=== PATIENT | male | born 1960 ===

== ENCOUNTER 2016-12-31 20:38 | Emergency (ER) | payer MEDICARE ==
[2016-12-31 20:46] VITALS: BMI 24.3
[2016-12-31 20:48] VITALS: TEMP 99.1; O2SAT 99
[2016-12-31] MEDS ORDERED: Oxycodone/Acetaminophen 5/325 mg Tab PO STA (21:02)
--- NOTE | 2016-12-31 21:02 | ED PDOC ---
Arrival/HPI <Veto Mares - Last Filed: 12/31/16 21:11> - General Historian: Patient <Stas Riley - Last Filed: 01/01/17 00:38> - General Chief Complaint: Back Pain Time Seen by Provider: 12/31/16 20:57 - History of Present Illness Narrative History of Present Illness (Text): 12/31/16 20:57 56 y/o male, pmh including chronic lower back pain/htn, nkda, c/o lt. lower back pain with the radiating to the lt. lower extremity x 2 days with no fall or trauma. Pt. stated that he had lower back surgery years ago, chronically on the vicodin due to the lower back pain, started to have the lt. lower back pain about 2 days with radiating to the left lower extremity, no calf pain, no urinary or bowel incontinence or retention, no urinary symptoms, no fever or chills, no other medical or psychological complaints. (Stas Riley) Past Medical History - Provider Review Nursing Documentation Reviewed: Yes - Infectious Disease Hx of Infectious Diseases: None - Cardiac Hx Hypertension: Yes - Pulmonary Hx Respiratory Disorders: No - Neurological Hx Neurological Disorder: No - HEENT Hx HEENT Disorder: No - Renal Hx Renal Disorder: No - Endocrine/Metabolic Hx Endocrine Disorders: No - Hematological/Oncological Hx Blood Disorders: No - Integumentary Hx Dermatological Disorder: No - Musculoskeletal/Rheumatological Hx Arthritis: Yes Other/Comment: Back surgery - with metal neftali. Ankle surgery - Gastrointestinal Hx Gastrointestinal Disorders: Yes Hx Gastroesophageal Reflux: Yes Hx Hemorrhoids: Yes - Genitourinary/Gynecological Hx Genitourinary Disorders: Yes Hx Prostate Problems: Yes (SLIGHTLY ENLARGED) - Psychiatric Hx Psychophysiologic Disorder: No Hx Substance Use: No - Surgical History Hx Cholecystectomy: Yes Other/Comment: Back surgery with metal neftali - Anesthesia Hx Anesthesia: Yes Hx Anesthesia Reactions: No Hx Malignant Hyperthermia: No <Stas Riley - Last Filed: 01/01/17 00:38> Family/Social History - Physician Review Nursing Documentation Reviewed: Yes Family/Social History: Unknown Family HX Smoking Status: Never Smoked Hx Alcohol Use: No Hx Substance Use: No <Stas Riley - Last Filed: 01/01/17 00:38> Allergies/Home Meds <Veto Mares - Last Filed: 12/31/16 21:11> <Stas Riley Q - Last Filed: 01/01/17 00:38> Allergies/Adverse Reactions: Allergies No Known Allergies Allergy (Verified 06/16/15 21:28) Home Medications: Home Meds Medication Instructions Recorded Confirmed Enalapril Maleate [Enalapril] 20 mg PO BID 09/12/14 12/31/16 Hydrocodone/Acetaminophen 1 tab PO DAILY PRN 09/12/14 12/31/16 [Hydrocodone Bitartrate-Acetaminophen 325 mg-7] Omeprazole [Prilosec] 20 mg PO DAILY 09/12/14 12/31/16 Saw [place] Fruit [Saw [place]] 1 tab PO DAILY 09/12/14 12/31/16 Zolpidem [Ambien] 1 tab PO HS 09/12/14 12/31/16 Aspirin [Holmes Aspirin] 1 tab PO DAILY 12/31/16 12/31/16 Cholecalciferol [Vitamin D 1000 IU] 5,000 iu PO Q3D 12/31/16 12/31/16 Cyanocobalamin [Vitamin B12 100 500 mcg PO DAILY 12/31/16 12/31/16 mcg Tab] Folic Acid [Folic Acid] 1 tab PO DAILY 12/31/16 12/31/16 Review of Systems - Review of Systems Constitutional: absent: Fatigue, Fevers Eyes: absent: Vision Changes ENT: absent: Hearing Changes Respiratory: absent: SOB, Cough Cardiovascular: absent: Chest Pain Gastrointestinal: absent: Abdominal Pain, Nausea, Vomiting Musculoskeletal: Back Pain. absent: Arthralgias, Neck Pain, Myalgias Skin: absent: Rash, Pruritis, Skin Lesions Neurological: absent: Headache, Dizziness <Stas Riley Q - Last Filed: 01/01/17 00:38> Physical Exam Vital Signs Reviewed: Yes Temperature: Afebrile Blood Pressure: Normal Pulse: Regular Respiratory Rate: Normal Appearance: Positive for: Well-Appearing, Non-Toxic Pain Distress: Severe Mental Status: Positive for: Alert and Oriented X 3 - Systems Exam Head: Present: Atraumatic, Normocephalic Pupils: Present: PERRL Extroacular Muscles: Present: EOMI Conjunctiva: Present: Normal Mouth: Present: Moist Mucous Membranes Neck: Present: Normal Range of Motion Respiratory/Chest: Present: Clear to Auscultation, Good Air Exchange. No: Respiratory Distress, Accessory Muscle Use Cardiovascular: Present: Regular Rate and Rhythm, Normal S1, S2. No: Murmurs Abdomen: Present: Normal Bowel Sounds. No: Tenderness, Distention, Peritoneal Signs Back: Present: Normal Inspection, Paraspinal Tenderness, Other (LS spine: +ttp on the lt. paraspinal with spasm noted, visible surgical scars, no rash, FROM without limitation, sensation intact, motor 5/5, no saddling gait. ). No: CVA Tenderness, Midline Tenderness Upper Extremity: Present: Normal Inspection. No: Cyanosis, Edema Lower Extremity: Present: Normal Inspection. No: Edema Neurological: Present: GCS=15, Speech Normal, Motor Func Grossly Intact, Gait Normal (walking with cane. ), Memory Normal Skin: Present: Warm, Dry, Normal Color. No: Rashes Psychiatric: Present: Alert, Oriented x 3, Normal Insight, Normal Concentration <Stas Riley - Last Filed: 01/01/17 00:38> Vital Signs Temp Pulse Resp BP Pulse Ox 01/01/17 00:23 78 16 120/86 99 12/31/16 20:47 99.1 F 101 H 18 143/90 99 Medical Decision Making <Veto Mares - Last Filed: 12/31/16 21:11> - RAD Interpretation Billing Administrator: Radiologist <Stas Riley - Last Filed: 01/01/17 00:38> ED Course and Treatment: 12/31/16 21:06 -CT Lumbar spine -toradol/percocet/valium/lidoderm patch -Observe and reassess 01/01/17 00:34 -CT Lumbar spine discussed with the patient and Dr. Mares with the pain well controlled and no focal neurological deficits, agreed to bring the copy of the CT and see the orthopedic spine surgeon. -CT results discussed with the patient in detail. -Discharge home with naproxen, flexeril, continue vicodin at home as needed, lidoderm patch, heat compression, bed rest, bring the CT lumbar disc to the orthopedic surgeon, follow up with your own pmd and orthopedic spine surgeon and pain management within 2 days, return to the ER for any new or worsening signs or symptoms. (Stas Riley) - RAD Interpretation Radiology Orders: 12/31/16 21:02 LUMBAR SPINE W/O CONTRAST [CT] Stat 12/31/16 21:02 LUMBAR SPINE W/O CONTRAST [CT] Stat FINDINGS: Vertebrae: Status post compression of L2 and to a lesser degree L1 and L3 which appear to be chronic. There is stabilization with vertical rods and posterior element retainers extending from T12- L4. There is mild retropulsion of the central aspect of L2 with low normal size of the spinal canal. Discs/spinal canal/neural foramina: T12-L1: Beam hardening artifact. Degenerative change of the disc is suggested with no gross spinal or foraminal stenosis. L1-L2: Retropulsion of the posterior superior aspect of L2. No significant disc bulge is suggested and there is no spinal or foraminal stenosis. L2-L3: Minimal diffuse bulging disc with no significant degenerative changes and no spinal or foraminal stenosis. L3-L4: The disc is well-maintained with no significant degenerative changes and no spinal or foraminal stenosis. L4-L5: Moderate interspace narrowing with minimal diffuse bulge of the disc and mild facet arthropathy. No spinal stenosis. Borderline left neural foraminal stenosis is suggested. L5-S1: Minimal diffuse bulge of the disc with mild facet arthropathy. The spinal canal is of adequate size with mild bilateral neural foraminal stenosis and loss of foraminal fat. IMPRESSION: 1. Chronic compression of L2 and to a lesser degree L1 and L3. 2. Posterior stabilization with metallic rods connected to posterior elements from T12-L4. 3. Mild multilevel degenerative changes with no significant spinal stenosis. There is suggestion of bilateral neural foraminal stenosis at L5-S1 and to a lesser degree at L4-L5 on the left. Thank you for allowing us to participate in the care of your patient. Dictated and Authenticated by: Mayo Macario MD 01/01/2017 12:09 AM Eastern Time ([place] & [place]) (Stas Riley) - Medication Orders Current Medication Orders: Discontinued Medications Diazepam (Valium) 5 mg PO ONCE ONE PRN Reason: Protocol Stop: 12/31/16 21:03 Last Admin: 12/31/16 21:11 Dose: 5 mg Ketorolac Tromethamine (Toradol) 60 mg IM STAT STA Stop: 12/31/16 21:03 Last Admin: 12/31/16 21:11 Dose: 60 mg Lidocaine (Lidoderm) 1 ea TD STAT STA Stop: 12/31/16 21:17 Last Admin: 12/31/16 22:38 Dose: 1 ea Oxycodone/Acetaminophen (Percocet 5/325 Mg Tab) 1 tab PO STAT STA Stop: 12/31/16 21:03 Last Admin: 12/31/16 21:10 Dose: 1 tab - PA / [employer] / Resident Statement SUZAN has reviewed & agrees with the documentation as recorded. SUZAN has examined the patient and agrees with the treatment plan. <Veto Mares - Last Filed: 12/31/16 21:11> - PA / [employer] / Resident Statement SUZAN has reviewed & agrees with the documentation as recorded. <Stas Riley - Last Filed: 01/01/17 00:38> Disposition/Present on Arrival <Veto Mares - Last Filed: 12/31/16 21:11> - Present on Arrival Any Indicators Present on Arrival: No History of DVT/PE: No History of Uncontrolled Diabetes: No Urinary Catheter: No History of Decub. Ulcer: No History Surgical Site Infection Following: None - Disposition Have Diagnosis and Disposition been Completed?: Yes Disposition Time: 00:36 Patient Plan: Discharge <Stas Riley - Last Filed: 01/01/17 00:38> - Disposition Diagnosis: Lumbar compression fracture, Neural foraminal stenosis of lumbar spine Disposition: HOME/ ROUTINE Patient Problems: Current Active Problems Problem Status Onset Lumbar compression fracture Acute Neural foraminal stenosis of lumbar spine Acute Condition: IMPROVED Additional Instructions: -Discharge home with naproxen, flexeril, continue vicodin at home as needed, lidoderm patch, heat compression, bed rest, bring the CT lumbar disc to the orthopedic surgeon, follow up with your own pmd and orthopedic spine surgeon and pain management within 2 days, return to the ER for any new or worsening signs or symptoms. Prescriptions: Cyclobenzaprine [Cyclobenzaprine HCl] 10 mg PO TID PRN #21 tab PRN Reason: Other Lidocaine 5% [Lidoderm] 1 patch TOP DAILY PRN #14 patch PRN Reason: Other Naproxen 500 mg PO BID PRN #22 tab PRN Reason: Other Referrals: Tiago Littlejohn MD [Primary Care Provider] - Follow up with primary Jon Alcantara MD [Staff Provider] - Follow up with primary Forms: WORK NOTE
[2016-12-31] MEDS ORDERED: Lidocaine 5% Patch TD STA (21:16)
[2017-01-01 00:25] VITALS: BP 120/86; PULSE 78; RESP 16
[2017-01-01] MEDS ORDERED: Lidocaine 5% Patch TD SCH (10:00)
--- NOTE | 2017-01-01 14:09 | CT ---
PROCEDURE: CT Lumbar Spine without contrast HISTORY: Lt. lower back pain radiating COMPARISON: None. TECHNIQUE: Axial computed tomography images were obtained of the lumbar spine without the use of intravenous contrast. Coronal and sagittal reformatted images were created and reviewed. Radiation dose: Total exam DLP = 443 mGy-cm. This CT exam was performed using one or more of the following dose reduction techniques: Automated exposure control, adjustment of the mA and/or kV according to patient size, and/or use of iterative reconstruction technique. FINDINGS: VERTEBRAE: Straightened lumbar curvature. No spondylolisthesis. Patient was post spinal fusion from T12 pedicle to L4 pedicles by paired fusion rods. Mild anterior wedge compression fracture of the L2 vertebral body is appreciated of indeterminate age with convex displacement of the posterior margins of the L2 vertebral body into the epidural space. There is a borderline anterior wedged L1 vertebral fracture with Schmorl's nodes affecting the upper endplates of L1-L2 and L3. L3-4 5 energy energy with a spaces markedly degenerated with surrounding endplate degenerative change. Vacuum disc changes are identified at T12-L1 with prevertebral soft tissues unremarkable exclusive of the fusion rods noted above. DISCS/SPINAL CANAL/NEURAL FORAMINA: L1-2: Artifact from fusion hardware limits evaluation of the majority of the examination including the central canal with incidental views through the T12-L1 not likely reflecting significant stenosis. No significant bony central stenosis appreciated at L1-2 or the bilateral neural foramina. Mild narrowing of the central canal posterior to L2 is appreciated due to compression fracture without obvious fragmentation of the vertebral body. L2-3: No significant bony stenosis is identified of the central canal or neural foramina bilaterally. L3-4: No significant bony stenosis is identified of the central canal or neural foramina bilaterally. L4-5: A mild disc osteophyte complex identified here resulting in mild central stenosis and [id number] bilateral neural foraminal stenosis. L5-S1: A generalized disc bulge encroaches the descending bilateral S1 nerve roots an causes limited bilateral lateral recess stenosis without generalized central canal stenosis. Mild bilateral neural foraminal stenosis also identified. PARASPINAL SOFT TISSUES: Discussed above. OTHER FINDINGS: None. IMPRESSION: 1. A compression fracture of L2 is identified mild in severity of indeterminate age resulting in a mild central stenosis at L2 below the L1-2 disc interspace level and above the L3-4 disc level. No fragmentation related. 2. A mild central canal stenosis identified at L4-5 with [id number] bilateral neural foraminal stenoses cause by a disc osteophyte complex. 3. A generalized disc bulge at L5-S1 encroaches the descending bilateral S1 nerve roots with limited bilateral lateral recess stenosis appreciated. 4. Likely posterior lumbar spinal fusion is identified from T12 -L4 by posterior fusion hardware. .
== END 2017-01-01 00:48 | disposition home or self-care (01) ==
LOC: ED 20:38
DX: M48.06 Spinal stenosis, lumbar region (principal); M48.56XA Collapsed vertebra, not elsewhere classified, lumbar region, initial encounter for fracture; I10 Essential (primary) hypertension
CPT/HCPCS: 72131; 96372; 99284; J1100; J1885

== ENCOUNTER 2017-05-23 16:23 | Emergency (ER) | payer MEDICARE ==
[2017-05-23 16:24] VITALS: BMI 24.3
[2017-05-23 16:40] VITALS: BP 135/95; PULSE 103; RESP 18; TEMP 98.4; O2SAT 99
[2017-05-23] MEDS ORDERED: Naproxen 550 mg Tab PO STA (16:54)
--- NOTE | 2017-05-23 16:54 | ED PDOC ---
Arrival/HPI - General Chief Complaint: Upper Extremity Problem/Injury Time Seen by Provider: 05/23/17 16:24 Historian: Patient - History of Present Illness Narrative History of Present Illness (Text): 05/23/17 16:54 Rod Shah is 57 year old male, whose past medical history includes chronic lower back pain, hypertension, arthritis, cholecystectomy and metal hardware placement in back, presents to the Emergency department complaining of right shoulder pain since yesterday. Patient informs radiation of pain to right side of neck since this morning. Patient also complains of mild left back pain discomfort, worse with movement, "like something pulled" denies direct trauma. . Patient denies fever, cough, chest pain, shortness of breath, trauma, or any other complaints. 05/23/17 18:04 Past Medical History - Provider Review Nursing Documentation Reviewed: Yes - Infectious Disease Hx of Infectious Diseases: None - Cardiac Hx Hypertension: Yes - Pulmonary Hx Respiratory Disorders: No - Neurological Hx Neurological Disorder: No - HEENT Hx HEENT Disorder: No - Renal Hx Renal Disorder: No - Endocrine/Metabolic Hx Endocrine Disorders: No - Hematological/Oncological Hx Blood Disorders: No - Integumentary Hx Dermatological Disorder: No - Musculoskeletal/Rheumatological Hx Arthritis: Yes Other/Comment: Back surgery - with metal neftali. Ankle surgery - Gastrointestinal Hx Gastrointestinal Disorders: Yes Hx Gastroesophageal Reflux: Yes Hx Hemorrhoids: Yes - Genitourinary/Gynecological Hx Genitourinary Disorders: Yes Hx Prostate Problems: Yes (SLIGHTLY ENLARGED) - Psychiatric Hx Psychophysiologic Disorder: No Hx Substance Use: No - Surgical History Hx Cholecystectomy: Yes Other/Comment: Back surgery with metal neftali - Anesthesia Hx Anesthesia: Yes Hx Anesthesia Reactions: No Hx Malignant Hyperthermia: No Family/Social History - Physician Review Nursing Documentation Reviewed: Yes Family/Social History: No Known Family HX Smoking Status: Never Smoked Hx Alcohol Use: No Hx Substance Use: No Allergies/Home Meds Allergies/Adverse Reactions: Allergies No Known Allergies Allergy (Verified 05/23/17 16:51) Home Medications: Home Meds Medication Instructions Recorded Confirmed Enalapril Maleate [Enalapril] 20 mg PO BID 09/12/14 05/23/17 Metoprolol 25 mg PO DAILY 05/23/17 05/23/17 Review of Systems - Physician Review All systems were reviewed & negative as marked: Yes - Review of Systems Constitutional: Normal Eyes: Normal ENT: Normal Respiratory: Normal. absent: SOB, Cough Cardiovascular: Normal. absent: Chest Pain Gastrointestinal: Abdominal Pain (mild left abdominal discomfort ) Genitourinary Male: Normal Musculoskeletal: Back Pain (history of chronic back pain ), Neck Pain (right side radiating from right shoulder ) Skin: Normal Neurological: Normal Endocrine: Normal Hemo/Lymphatic: Normal Psychiatric: Normal Physical Exam Vital Signs Reviewed: Yes Vital Signs Temp Pulse Resp BP Pulse Ox 05/23/17 16:39 98.4 F 103 H 18 135/95 H 99 Temperature: Afebrile Blood Pressure: Normal Pulse: Regular Respiratory Rate: Normal Appearance: Positive for: Well-Appearing, Non-Toxic, Comfortable Pain Distress: None Mental Status: Positive for: Alert and Oriented X 3 - Systems Exam Head: Present: Atraumatic, Normocephalic Pupils: Present: PERRL Extroacular Muscles: Present: EOMI Conjunctiva: Present: Normal Mouth: Present: Moist Mucous Membranes Neck: Present: Normal Range of Motion Respiratory/Chest: Present: Clear to Auscultation, Good Air Exchange. No: Respiratory Distress, Accessory Muscle Use Cardiovascular: Present: Regular Rate and Rhythm, Normal S1, S2. No: Murmurs Abdomen: Present: Normal Bowel Sounds. No: Tenderness, Distention, Peritoneal Signs Back: Present: Normal Inspection Upper Extremity: Present: NORMAL PULSES, Tenderness (mild tenderness on right shoulder ), Capillary Refill < 2s. No: Cyanosis, Edema Lower Extremity: Present: Normal Inspection. No: Edema Neurological: Present: GCS=15, CN II-XII Intact, Speech Normal Skin: Present: Warm, Dry, Normal Color. No: Rashes Psychiatric: Present: Alert, Oriented x 3, Normal Insight, Normal Concentration Medical Decision Making ED Course and Treatment: 05/23/17 16:55 Impression: 57 year old male presents to the Emergency department complaining of shoulder and body pain. Plan: -- naproxen -- X-Ray right shoulder -- Urinalysis -- Reassess and disposition 05/23/17 18:04 xr neg as read by me. ua neg for infection and blood, acute uti/pyelo/kidney stone less likely. pain resolved in er. noted small glucose/ketones in ua, bgm is 101, no e/o of dka. - Lab Interpretations Lab Results: Lab Results 05/23/17 17:28: Urine Color Yellow, Urine Appearance Clear, Urine pH 6.0, Ur Specific Alvin 1.010, Urine Protein Negative, Urine Glucose (UA) 100 H, Urine Ketones 15 H, Urine Blood Negative, Urine Nitrate Negative, Urine Bilirubin Negative, Urine Urobilinogen 0.2, Ur Leukocyte Esterase Negative I have reviewed the lab results: Yes - RAD Interpretation Radiology Orders: 05/23/17 16:53 SHOULDER RIGHT [RAD] Stat - Medication Orders Current Medication Orders: Discontinued Medications Naproxen (Anaprox Ds) 550 mg PO STAT STA Stop: 05/23/17 16:55 Last Admin: 05/23/17 17:16 Dose: 550 mg - Scribe Statement The provider has reviewed the documentation as recorded by the Scribe Reyna Clinton. All medical record entries made by the Scribe were at my direction and personally dictated by me. I have reviewed the chart and agree that the record accurately reflects my personal performance of the history, physical exam, medical decision making, and the department course for this patient. I have also personally directed, reviewed, and agree with the discharge instructions and disposition. Disposition/Present on Arrival - Present on Arrival Any Indicators Present on Arrival: No History of DVT/PE: No History of Uncontrolled Diabetes: No Urinary Catheter: No History of Decub. Ulcer: No History Surgical Site Infection Following: None - Disposition Have Diagnosis and Disposition been Completed?: Yes Diagnosis: Shoulder strain, Back pain Disposition: HOME/ ROUTINE Disposition Time: 18:05 Patient Problems: Current Active Problems Problem Status Onset Back pain Acute Shoulder strain Acute Condition: STABLE Discharge Instructions (ExitCare): Shoulder Sprain (ED), Acute Low Back Pain ( DC) Additional Instructions: follow up with your doctor/specialist. return to er with worsening symptoms or concerns. Prescriptions: Naproxen [Naprosyn] 500 mg PO BID PRN #14 tab PRN Reason: Pain, Mild (1-3) Referrals: Tiago Littlejohn MD [Primary Care Provider] - Follow up with primary Shant Alvarez DO [Staff Provider] - Follow up with primary Byron Burnett MD [Staff Provider] - Follow up with primary Forms: [employer] (Eth[place]ian)
[2017-05-23 17:38] LABS: URINE BILIRUBIN NEGATIVE (NEGATIVE); URINE BLOOD NEGATIVE (NEGATIVE); URINE GLUCOSE (UA) 100 mg/dL (NEGATIVE); URINE KETONE 15 mg/dL (NEGATIVE); URINE LEUKOCYTE ESTERASE NEGATIVE Leu/uL (NEGATIVE); URINE PROTEIN NEGATIVE mg/dL (<30 mg/dL); URINE UROBILINOGEN 0.2 E.U./dL (<1 E.U./dL)
[2017-05-23 17:41] LABS: URINE APPEARANCE CLEAR (CLEAR); URINE COLOR YELLOW (YELLOW)
--- NOTE | 2017-05-24 10:15 | RAD ---
PROCEDURE: Radiographs of the Right Shoulder HISTORY: pain COMPARISON: No prior. FINDINGS: BONES: Normal. No fracture. JOINTS: Normal. Glenohumeral and acromioclavicular joints preserved. No osteoarthritis. SOFT TISSUES: Normal. OTHER FINDINGS: None. IMPRESSION: Normal radiographs of the right shoulder.
== END 2017-05-23 18:05 | disposition home or self-care (01) ==
LOC: ED 16:23
DX: S46.911A Strain of unspecified muscle, fascia and tendon at shoulder and upper arm level, right arm, initial encounter (principal); X58.XXXA Exposure to other specified factors, initial encounter; Y92.9 Unspecified place or not applicable; M54.5 Low back pain